=== PATIENT | female | born 2000 ===

== ENCOUNTER 2022-05-11 00:17 | Emergency (ER) | payer SELFPAY ==
[~2022-05-11] VITALS: Ht 165.1 cm; Wt 61.4 kg
[2022-05-11 00:19] VITALS: BP 142/80
[2022-05-11 00:57] LABS: AMPHET/METH SCREEN,URINE NEGATIVE (NEGATIVE); BARBITURATE SCREEN, URINE NEGATIVE (NEGATIVE); BENZODIAZEPINES SCREEN,URINE NEGATIVE (NEGATIVE); CANNABINOID SCREEN,URINE POSITIVE (NEGATIVE); COCAINE SCREEN,URINE NEGATIVE (NEGATIVE); METHADONE SCREEN, URINE NEGATIVE (NEGATIVE); OPIATE SCREEN,URINE NEGATIVE (NEGATIVE)
[2022-05-11 00:59] LABS: PHENCYCLIDINE SCREEN,URINE NEGATIVE (NEGATIVE)
== END 2022-05-11 02:37 | disposition left against medical advice (07) ==
LOC: EMS 00:19
DX: R69 Illness, unspecified (principal); Z53.21 Procedure and treatment not carried out due to patient leaving prior to being seen by health care provider